=== PATIENT | male | born 2000 | race Hispanic/Latino ===

== ENCOUNTER 2023-06-08 04:22 | Emergency (ER) | payer OTHER, SELFPAY ==
[2023-06-08 04:26] VITALS: BP 137/85
--- NOTE | 2023-06-08 05:38 | ED.GENMED ---
History of Present Illness
General
Chief Complaint: Dental Problem
Source: patient and spouse
Exam Limitations: none
Time Seen by Provider: 06/08/23 05:31
Nursing documentation reviewed up to this point in time: agreed with
Travel History
Have you had any contact with someone who has COVID-19?: No
Do you have any symptoms of coronavirus? Fever > 100 degrees, chills, cough, shortness of breath, sore throat, loss of taste or smell, muscle aches, or headache?: No
History of Present Illness
History of Present Illness:
This is a 23-year-old male with no significant past medical history who complains of chronic right upper posterior molar pain with chronic tooth avulsion for which he has been following with dentist, scheduled for dental extraction but unfortunately
those appointments have been postponed, rescheduled for various reasons with next dental extraction scheduled for later this month.
He complains of persistent pain that has gotten worse over the past 2 to 3 weeks, increased pain with attempted chewing and marked difficulty sleeping.
Mild temporary relief with ibuprofen that was prescribed a few months ago but that prescription has lapsed. He has been taking [id number] ibuprofen as well as Tylenol with minimal temporary relief. His last dose of ibuprofen was prior to
midnight.
He has not had a fever nor chills. No sore throat, no facial swelling.
He takes no medicines on a daily basis.
Past History
Past History
ED Past Medical History: None
ED Past Surgical History: Appendectomy
Social History
Tobacco: Non-smoker
Alcohol: None
Drug: None
Living: with family
Family History
Family History: Other (Noncontributory)
Review of Systems
Review of Systems
All Other Systems: ROS reviewed and negative except as documented in HPI and ROS
Constitutional: Reports sleep disturbance
EENT: Reports mouth pain; Denies mouth swelling
Respiratory: Reports no symptoms
Cardiac: Reports no symptoms
ABD/GI: Reports no symptoms
: Reports no symptoms
Musculoskeletal: Denies neck pain or back pain
Hematologic/Lymphatic: Denies swollen glands
Phy Exam
Physical Exam
Physical Exam:
GENERAL: 23-year-old male appears his stated age, bright and alert, pleasant, appears in no acute distress. Accompanied by his significant other is well as a toddler daughter. Moderate odor of marijuana to patient.
EYE: pupils equal and reactive. anicteric
NECK: Supple, nontender, no meningismus, no significant adenopathy.
ENT: posterior pharynx is clear, oral mucosa is moist. There is partial avulsion of right upper posterior molar with moderate local tenderness to palpation. There is mild erythema to right upper gingiva but no soft tissue swelling. There is no
facial swelling. TM clear b/l, nares patent.
CARDIAC: Regular rate and rhythm. no murmur.
LUNGS: Clear breath sounds bilaterally, no acute respiratory distress, no wheezes/rales/rhonchi
ABDOMEN: Soft, nondistended, without focal tenderness
NEUROLOGICAL: Alert and oriented x3, no focal neuro deficits. Gait is martin and steady.
SKIN: Warm and dry, normal color, skin intact. No rash.
MUSCULOSKELETAL: No C/C/E. peripheral pulses are full and equal b/l. No palpable tenderness.
PSYCH: Normal and appropriate interaction.
Course
Orders/Labs/Results
Orders:
Orders
06/08/23 05:37
Amoxicillin [Amoxil] 1,000 mg PO NOW STA
Ibuprofen [Motrin] 800 mg PO NOW STA
Oxycodone/Acetaminophen [Percocet 5/325] 1 tablet PO NOW STA
Vital Signs
Initial and Last Documented VS:
Initial Vital Signs
Temp Pulse Resp BP Pulse Ox
98.1 F 93 16 137/85 100
06/08/23 04:26 06/08/23 04:26 06/08/23 04:26 06/08/23 04:26 06/08/23 04:26
Last Documented Vital Signs
Temp Pulse Resp BP Pulse Ox
98.1 F 93 16 137/85 100
06/08/23 04:26 06/08/23 04:26 06/08/23 04:26 06/08/23 04:26 06/08/23 04:26
MDM/Problems Addressed
Differential Diagnosis Includes:
Patient presents with chronic molar avulsion, chronic pain and has been following with dentist, is scheduled for dental extraction in the near future.
Limited pain relief with [id number] pain medications and there is note of moderate gingival erythema, concerning for occult/early dental infection thus will initiate a course of amoxicillin, will prescribe ibuprofen 800 mg for as needed pain
as well as a short course of Percocet for pain.
Recommend soft diet. Elevating head of bed and prompt follow-up with dentist for further evaluation.
*Pulse Oximetry
Patient hypoxic: no
*Critical Care Note
Total Time (30-74mins, 75-104mins- exclusive of procedures): Not Applicable
ED Attending Note
-
Portions of this chart may have been created with voice recognition software.� Occasional wrong word or��sound alike� substitutions may have occurred due to the inherent limitations of voice recognition software.
Discharge Plan
Departure
Patient Disposition: Home (Routine Discharge)
Date of Disposition: 06/08/23
Time of Disposition: 05:44
Patient with high blood pressure during this ER visit?: No
Condition: Good
Discharge Problem:
acute on chronic dental pain, chronic dental avulsion
Instructions: Fractured Tooth (DC), Dental Pain (DC)
Prescriptions:
New
amoxicillin 875 mg tablet
875 mg PO BID Qty: 20 0RF
ibuprofen 800 mg tablet
800 mg PO QIDPRN PRN (Reason: pain, fever) Qty: 40 0RF
oxycodone-acetaminophen [Percocet] 5-325 mg Tablet
1 tab PO Q6HPRN PRN (Reason: pain) Qty: 12 0RF
Referrals:
Giles Rose MD [Family Provider] -
Activity Restrictions/Additional Instructions:
Call your dentist on Saturday for recheck and further evaluation.
Interventions
Interventions:
*Risk Screen - Suicide Last Done: 06/08/23 04:26
*General Assessment Last Done: 06/08/23 04:26
*Neglect/Abuse Screening Last Done: 06/08/23 04:26
ED- Fall Risk Assessment Last Done: 06/08/23 04:26
*ED COVID-19 Vaccine History Last Done: 06/08/23 04:26
Discharge Date and Time
Print Language: JAPANESE
[2023-06-08] MEDS: PERCOCET 5/325 1 TABLET PO (05:45)
[2023-06-08] MEDS: MOTRIN 800 MG PO (05:45)
[2023-06-08] MEDS: AMOXIL 1000 MG PO (05:45)
[2023-06-08 05:50] VITALS: BP 118/77
== END 2023-06-08 05:57 | disposition home or self-care (01) ==
LOC: EMR 04:22
PROVIDERS: EMERGENCY PHYSICIAN Emergency Medicine; FAMILY PHYSICIAN Internal Medicine
DX: K08.89 Other specified disorders of teeth and supporting structures (principal); S03.2XXA Dislocation of tooth, initial encounter; X58.XXXA Exposure to other specified factors, initial encounter; G89.29 Other chronic pain; G47.9 Sleep disorder, unspecified
CPT/HCPCS: 99283